=== PATIENT | female | born 1960 | race Caucasian/White ===

== ENCOUNTER 2021-03-03 17:06 | Emergency (ER) | payer OTHER, SELFPAY ==
[2021-03-03 17:19] VITALS: BP 118/68; PULSE 74; RESP 16; TEMP 36.8; O2SAT 99
--- NOTE | 2021-03-03 18:10 | ED.SKABFB ---
HPI - Skin/Abscess/Foreign Bdy General Chief complaint: Skin/Abscess/Foreign Body Stated complaint: rash Source: patient and RN notes reviewed Mode of arrival: ambulatory History of Present Illness HPI narrative: This is a 61-year-old female who presented to urgent care with complaints of a skin rash on her upper and lower extremities. Patient notes that she was working out in her yard when she believes she came into contact with poison irais. While at home she did apply hydrocortisone. She has had some oozing from the skin lesions. The patient denies SOB, CP, palpitation, extremity numbness, lightheadedness, dizziness, constipation, diarrhea, chills, or fever. Related Data Home Medications Medication Instructions Recorded Confirmed venlafaxine 150 mg PO DAILY 03/03/21 03/03/21 Allergies Allergy/AdvReac Type Severity Reaction Status Date / Time No Known Allergies Allergy Verified 03/03/21 17:33 Review of Systems Review of Systems: A 14 organ system Review of Systems was performed and pertinent positives included in the HPI, otherwise remaining ROS is negative. [facility] Family History Family History (Updated 03/03/21 @ 18:11 by LIBBY MendezP-C) Other Family history non-contributory Exam Narrative: GENERAL: This is a well-nourished, well-developed patient, in no apparent distress. HEAD: normocephalic, atraumatic. EYES: PERRL. Sclera clear/white. Vision is grossly intact. EARS: External ears normal, auditory canals clear and without drainage, TMs normal without perforation. Hearing grossly intact. NOSE: External nose normal with no obvious nasal discharge, nares without redness, no rhinorrhea. THROAT: Mucous membranes moist, posterior pharynx clear. NECK: Neck supple, non-tender without lymphadenopathy, masses or thyromegaly. CARDIOVASCULAR: Regular rate and rhythm without murmurs, gallops, or rubs. RESPIRATORY: Clear to auscultation. Breath sounds equal bilaterally. No wheezes, rales, or rhonchi. GASTROINTESTINAL: Abdomen soft, non-tender, nondistended. Bowel sounds are active. No hepato-splenomegaly, or palpable masses. No guarding. SKIN: Lower and upper extremity areas with erythema and puruent drainage to extremity rash NEURO: awake, alert, and oriented to person, place and time. There were no obvious focal neurologic abnormalities. Steady gait EXTREMITIES: Normal range of motion. No edema. No calf tenderness. Negative Homans sign bilaterally. BACK: Nontender without deformity or crepitance. No flank tenderness. Course Course Emergency Course: Patient will be treated with clindamycin for cellulitis and prednisone for poison irais Vital Signs Vital signs: Vital Signs Temperature 98.3 F 03/03/21 17:19 Pulse Rate 74 03/03/21 17:19 Respiratory Rate 16 03/03/21 17:19 Blood Pressure 118/68 03/03/21 17:19 Pulse Oximetry 99 03/03/21 17:19 Temperature 98.3 F 03/03/21 17:19 Pulse Rate 74 03/03/21 17:19 Respiratory Rate 16 03/03/21 17:19 Blood Pressure 118/68 03/03/21 17:19 Pulse Oximetry 99 03/03/21 17:19 Discharge Plan Discharge Clinical Impression: Cellulitis Qualifiers: Site of cellulitis: extremity Site of cellulitis of extremity: lower extremity Laterality: unspecified laterality Qualified Code(s): L03.119 - Cellulitis of unspecified part of limb Contact dermatitis Qualifiers: Contact dermatitis type: irritant Contact dermatitis trigger: other trigger Qualified Code(s): L24.89 - Irritant contact dermatitis due to other agents Patient Disposition: Home, Self-Care Condition: Stable Instructions: Antibiotic Form, Cellulitis (ED), Poison Irais (ED) Additional Instructions: Wash the area with soap and cool water only. Avoid scratching when possible to prevent worsening of the condition and disruption of the skin that could lead to bacterial infection To relieve itching, place a cool washcloth or some ice over the area that itches, rather than scratching Foll
== END 2021-03-03 18:12 | disposition home or self-care (01) ==
PROVIDERS: Emergency Provider Nurse Practitioner
DX: L03.119 Cellulitis of unspecified part of limb (principal); L24.89 Irritant contact dermatitis due to other agents
CPT/HCPCS: 99203; G0463

== ENCOUNTER 2023-06-22 01:33 | Day surgery (SDC) | payer BC, SELFPAY ==
[2023-06-13 12:05] VITALS: BMI 28.8
--- NOTE | 2023-06-20 08:18 | SUR.PREOP ---
Patient called regarding upcoming procedure. Reviewed preop instructions, appointment times, and procedure prep.
[2023-06-22 07:36] VITALS: BP 117/72; PULSE 75; RESP 16; TEMP 36.3; O2SAT 99
[2023-06-22] MEDS: LACTATED RINGERS 1,000 ML 150 ML IV CONT (07:44)
--- NOTE | 2023-06-22 08:11 | WPDANESEPPF ---
Anes - Initial Pre Proc Eval Procedure: Operation Date: 06/22/23 09:00 Proposed Procedures p Screening Colonoscopy - Anjum Maciel DO Date/Time: 06/22/23 08:11 Surgeon: Anjum Maciel DO Pre Op Diagnosis: neoplasm screening Patient Data Age: 63 Gender: F Height: 1.63 m Weight: 74.7 kg Last Vital Signs Temp 97.4 F L 06/22/23 07:36 Pulse 75 06/22/23 07:36 Resp 16 06/22/23 07:36 BP 117/72 06/22/23 07:36 Pulse Ox 99 06/22/23 07:36 O2 Del Method Room Air 06/22/23 07:36 Allergies Allergy/AdvReac Type Severity Reaction Status Date / Time No Known Allergies Allergy Verified 06/22/23 07:35 Home Medications Medication Instructions Recorded Confirmed Type estradiol 0.5 mg tablet 0.5 mg PO DAILY 08/19/22 06/13/23 History trazodone 100 mg tablet 100 mg PO QHS PRN sleep #90 tabs 05/23/23 06/13/23 Rx venlafaxine 75 mg tablet,extended 75 mg PO DAILY #30 tabs 05/23/23 06/13/23 Rx release 24 hr Patient hx anesthesia problems: none Family hx anesthesia problems: none Results Review: All pre-operative results and documents have been reviewed as part of the pre-operative evaluation. [facility] Past Medical History Medical History Vaginal atrophy Surgical History Surgical History H/O section H/O: hysterectomy Family History Family History Mother Diabetes mellitus Sibling Thyroid cancer Sibling No problems noted. Other Family history non-contributory Social History Social History Smoking packs per day: 0.5 Smoking cigarettes per day: 10.0 Smoking status: Former smoker Tobacco type: cigarettes Smoking end date: 03/27/06 Alcohol intake: current Drinks per week: 2 Substance use: current Substance use type: marijuana Other substance usage details: gummies Lack of Transportation: No Lack of Food: Never True Current Housing: I Have Housing Concerned About Future Housing: No Difficulty Paying Gas/Electric Bills: No Difficulty Paying for Meds: No Currently Unemployed: No Education: Bachelor's Degree Difficulty w/ Childcare or Family Care: No Living arrangements: with family Occupation/Education: retired Additional occupation/education comments: retired Gender identity (if verbalized by the patient): Female Spiritual care concerns: No Anes - Eval Final PreProcedure Day of Procedure 06/22/23 08:11 Patient weight: normal Heart: regular rate and rhythm Lungs: clear to auscultation Airway: Mallampati scale class II Neurological: alert and oriented Last oral intake: >/= 8 hours ASA classification: II Emergent: no Anesthetic plan: proceed Anesthesia type and monitoring: general GIVS and standard monitoring Results Review: All pre-operative results and documents have been reviewed as part of the pre-operative evaluation. Informed Consent: The patient's anesthetic plan and its attendant risks and benefits were discussed with the patient/family/POA. Questions were solicited and answers provided to the satisfaction of the patient/family/POA.
--- NOTE | 2023-06-22 08:38 | PM.IMHP ---
H&P: HPI History of Present Illness Date/Time: 06/22/23 08:38 Chief Complaint: screening for colorectal cancer Narrative: this is a 63-year-old woman who presents for colonoscopy. Her last colonoscopy was 10 years ago and was normal. She denies any hematochezia or melena. She denies any family history of colon cancer. Review of Systems Review of Systems: All systems reviewed & are unremarkable except as noted in HPI and below Constitutional: Constitutional: Denies chills, Denies fever(s), Denies headache(s) and Denies weight loss Eyes: Eyes: Denies change in vision ENT: Denies dizziness, Denies headache(s), Denies neck mass and Denies throat swelling Cardiovascular: Cardiovascular: Denies chest pain, Denies lightheadedness and Denies dyspnea Respiratory: Respiratory: Denies cough, Denies dyspnea and Denies wheezing Gastrointestinal: Gastrointestinal: Denies abdominal pain, Denies change in bowel habits, Denies nausea and Denies vomiting Genitourinary: Genitourinary: Denies hematuria and Denies dysuria Musculoskeletal: Musculoskeletal: Reports as per HPI Integumentary/Breasts: Skin/Breast: Reports as per HPI Neurologic: Denies dizziness and Denies headache(s) Allergic/Immunologic: Allergic/Immunologic: Denies throat swelling and Denies wheezing [facility] Past Medical History Medical History Vaginal atrophy Surgical History Surgical History H/O section H/O: hysterectomy Family History Family History Mother Diabetes mellitus Sibling Thyroid cancer Sibling No problems noted. Other Family history non-contributory Social History Social History Smoking packs per day: 0.5 Smoking cigarettes per day: 10.0 Smoking status: Former smoker Tobacco type: cigarettes Smoking end date: 03/27/06 Alcohol intake: current Drinks per week: 2 Substance use: current Substance use type: marijuana Other substance usage details: gummies Lack of Transportation: No Lack of Food: Never True Current Housing: I Have Housing Concerned About Future Housing: No Difficulty Paying Gas/Electric Bills: No Difficulty Paying for Meds: No Currently Unemployed: No Education: Bachelor's Degree Difficulty w/ Childcare or Family Care: No Living arrangements: with family Occupation/Education: retired Additional occupation/education comments: retired Gender identity (if verbalized by the patient): Female Spiritual care concerns: No Meds Home Medications and Allergies Home Medications Medication Instructions Recorded Confirmed Type estradiol 0.5 mg tablet 0.5 mg PO DAILY 08/19/22 06/13/23 History trazodone 100 mg tablet 100 mg PO QHS PRN sleep #90 tabs 05/23/23 06/13/23 Rx venlafaxine 75 mg tablet,extended 75 mg PO DAILY #30 tabs 05/23/23 06/13/23 Rx release 24 hr Allergies Allergy/AdvReac Type Severity Reaction Status Date / Time No Known Allergies Allergy Verified 06/22/23 07:35 Vital Signs Vital Signs - 24 hr 06/22/23 07:36 Temperature 36.3 C L Pulse Rate 75 Respiratory Rate 16 Blood Pressure 117/72 Pulse Oximetry 99 Oxygen Delivery Room Air Exam Const: General: no acute distress and alert Orientation/consciousness: patient oriented x3 HENMT: Head: normocephalic and atraumatic Ears: hearing grossly normal bilaterally Face/Nose/Sinus: Normal nares present Mouth: Yes Normal oral and palatal mucosa present Eyes: Periorbital: periorbital findings normal Sclera: sclerae normal EOM: EOMs intact bilaterally Neck: Neck: normal visual inspection, no lymphadenopathy and trachea midline Chest: Chest palpation & inspection: normal inspection of the chest Resp: Effort & Inspection: normal respiratory effort Auscultati
[2023-06-22 09:25] VITALS: BP 113/79; PULSE 62; RESP 16; O2SAT 100
[2023-06-22 09:35] VITALS: BP 114/68; PULSE 54; RESP 15; O2SAT 100
[2023-06-22 09:45] VITALS: BP 125/89; PULSE 60; RESP 23; O2SAT 99
== END 2023-06-22 09:51 | disposition home or self-care (01) ==
PROVIDERS: PCP Nurse Practitioner; Visit Provider Surgery
PROC: 0DJD8ZZ Inspection of Lower Intestinal Tract, Via Natural or Artificial Opening Endoscopic (ICD-10-PCS; CPT 45378; principal; 2023-06-22 09:00)
DX: Z12.11 Encounter for screening for malignant neoplasm of colon (principal); F12.90 Cannabis use, unspecified, uncomplicated; Z98.890 Other specified postprocedural states; Z87.891 Personal history of nicotine dependence; Z80.8 Family history of malignant neoplasm of other organs or systems
CPT/HCPCS: 45378; J2704; J7120

== ENCOUNTER 2024-12-09 10:45 | Outpatient (CLI) | payer BC, SELFPAY ==
--- NOTE | ~2024-12-09 | XR_ITS ---
EXAMINATION: XR lumbar spine 2-3V DATE: 12/09/2024 10:57 INDICATION: Low back pain TECHNIQUE: 3 images of the lumbar spine were obtained COMPARISON: None. FINDINGS: There is bowel gas and stool projecting over the pelvis which limits evaluation. There are a few less than 1.0 cm calcifications projecting over the pelvis which may represent phleboliths, however, a distal ureteral stone or bladder stone or possible. No compression fracture in the lumbar spine. Grade 1 anterolisthesis of L4 on L5. Moderate degenerative change in the mid and lower lumbar spine. Grade 1 retrolisthesis of L1 on L2. Moderate joint space narrowing at the L1-L2 level. IMPRESSION: 1. No compression fracture in the lumbar spine. 2. Grade 1 retrolisthesis of L1 on L2 and L4 on L5. 3. Moderate degenerative change in the mid and lower lumbar facet joints. If symptoms persist or worsen, consider an MRI of the lumbar spine for further assessment. Reviewed, dictated and finalized at location Q.
--- OUTSIDE RECORDS SUMMARY | 2024-12-09 12:22 | XMS_ITS | Encounter Summary ---
Author Organization [facility] Facility Care Team Providers Care Pickle Processor Name Role Phone Smita Gomez MD Primary Care Provider [phone] Renetta Valles MD Unavailable [phone] Adam Luu MD Primary Care Provider [phone] Encounter Details Date Type Department Care Team (Latest Contact Info) Description 06/01/2018 Orders Only [facility]IN[facility] Provider, MD Pavel [address] [place] [address] Social History Tobacco Use Types Packs/Day Years Used Date Smoking Tobacco: Former Smokeless Tobacco: Never Alcohol Use Standard Drinks/Week Comments Yes 1 (1 standard drink = 0.6 oz pur e alcohol) Comments No Sex and Gender Information Value Date Recorded Sex Assigned at Not on file 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 us Historical Provider Final Res ult documented in this encounter Visit Diagnoses Not on filedocumented in this encounter Care Teams Pickle Processor Relationship Specialty Start Date End Date Smita Gomez MD PCP - General Family Medicine 09/21/17 09/29/22 Adam Luu MD [address] [address] PCP - General Internal Medicine 09/30/22 Renetta Valles MD [address] [facility] [address] [place], [place] [id number] Referring Physician Gynecology 07/18/18 documented as of this encounter
--- OUTSIDE RECORDS SUMMARY | 2024-12-09 12:22 | XMS_ITS | Encounter Summary ---
Author Organization [facility] Facility Care Team Providers Care College Physics Instructor Name Role Phone Sonal Moon MD Primary Care Provider Smita Gomez MD Primary Care Provider [phone] Renetta Valles MD Unavailable [phone] Adam Luu MD Primary Care Provider [phone] Encounter Details Date Type Department Care Team (Latest Contact Info) Description 06/08/2016 Orders Only [facility] CLINCONV Provider, MD Pavel [address] [place] [address] Social History Tobacco Use Types Packs/Day Years Used Date Smoking Tobacco: Never Assessed Comments Unknown Sex and Gender Information Value Date Recorded Sex Assigned at Not on file 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 us Historical Provider Final Res ult documented in this encounter Visit Diagnoses Not on filedocumented in this encounter Care Teams College Physics Instructor Relationship Specialty Start Date End Date Sonal Moon MD [address] [place] [address] PCP - General 07/21/16 09/20/17 Smita Gomez MD [address] [place] [address] PCP - General Family Medicine 09/21/17 09/29/22 Adam Luu MD [address] [address] PCP - General Internal Medicine 09/30/22 Renetta Valles MD [address] [facility] [address] [place] [address] Referring Physician Gynecology 07/18/18 documented as of this encounter
--- OUTSIDE RECORDS SUMMARY | 2024-12-09 12:22 | XMS_ITS | Clinical Summary ---
Author Organization [facility] Address [address] [place] [address] Care Team Providers Care Workforce Investment Act Career Manager Name Role Phone Gary Miller MD Primary Care Provider [phone] Source Comments [facility],non-owned Affiliates and Associated Physician Practices is amultiple site organization consisting of ambulatory clinics and hospital sitesin [place], [place], [place] and [place]. This disclosure is being madepursuant to the Care Everywhere program and may not contain all information available regarding this patient. 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 Gender Identity Not on file Sexual Orientation Not on file Plan of Treatment Health Maintenance Due Date Last Done Comments COLOGUARD (AGES 45-75) - COL ON CA SCREENING 1961 COLON MONITORING 1961 COLONOSCOPY - COLON CA SCREENING 1961 CT COLONOGRAPHY - COLON CA SCREENING 1961 Colorectal Cancer Screening 1961 FIT - COLON CA SCREENING 1961 FLEX SIG - COLON CA SCREENING 1961 LIPID TESTING 1961 MAMMOGRAM 1961 HIV SCREENING 02/08/1976 HEPATITIS C SCREENING 02/03/1979 DTAP/TDAP/TD VACCINES (1 - Tdap) 02/08/1980 PNEUMOCOCCAL VACCINE 50+ (1 of 1 - PCV) 2011 ZOSTER VACCINE (1 of 2) 2011 DEPRESSION SCREENING 03/27/2024 COVID-19 VACCINE (1 - 2023-2 5 season) 2024 INFLUENZA VACCINE (#1) 2024 Respiratory Syncytial Virus (RSV) Vaccine Pt: or over 60 yrs (1 - 1-dose 75+ series) 02/08/2036 HEPATITIS B VACCINE Aged Out No longe r eligible based on patient's age to complete this topic HIB VACCINE Aged Out No longer eligi ble based on patient's age to complete this topic HPV VACCINE Aged Out No longer eligi ble based on patient's age to complete this topic MENINGOCOCCAL (Group B) VACC INE SHARED DECISION-MAKING Aged Out No longer eligibl e based on patient's age to complete this topic MENINGOCOCCAL GROUPS A/C/Y/W VACCINE Aged Out No longer eligible b ased on patient's age to complete this topic Insurance COUNTS INCLUDE 234 BEDS AT [facility] Care Teams Workforce Investment Act Career Manager Relationship Specialty Start Date End Date Gary Miller MD [address] [place] [address] PCP - General 03/11/20
--- OUTSIDE RECORDS SUMMARY | 2024-12-09 12:22 | XMS_ITS | Encounter Summary ---
Author Organization [facility] Facility Care Team Providers Care Wire Bound Box Machine Helper Name Role Phone Sonal Moon MD Primary Care Provider Smita Gomez MD Primary Care Provider [phone] Renetta Valles MD Unavailable [phone] Adam Luu MD Primary Care Provider [phone] Encounter Details Date Type Department Care Team (Latest Contact Info) Description 12/31/2015 Orders Only [facility] CLINCONV Provider, MD Pavel [address] [place] [address] Social History Tobacco Use Types Packs/Day Years Used Date Smoking Tobacco: Never Assessed Comments Unknown Sex and Gender Information Value Date Recorded Sex Assigned at Not on file 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 us Historical Provider Final Res ult documented in this encounter Visit Diagnoses Not on filedocumented in this encounter Care Teams Wire Bound Box Machine Helper Relationship Specialty Start Date End Date Sonal Moon MD [address] [place] [address] PCP - General 07/21/16 09/20/17 Smita Gomez MD [address] [place] [address] PCP - General Family Medicine 09/21/17 09/29/22 Adam Luu MD [address] [address] PCP - General Internal Medicine 09/30/22 Renetta Valles MD [address] [facility] [address] [place] [address] Referring Physician Gynecology 07/18/18 documented as of this encounter
--- OUTSIDE RECORDS SUMMARY | 2024-12-09 12:22 | XMS_ITS | Encounter Summary ---
Author Organization [facility] Facility Care Team Providers Care Telecom Analyst Name Role Phone Sonal Moon MD Primary Care Provider Smita Gomez MD Primary Care Provider [phone] Renetta Valles MD Unavailable [phone] Adam Luu MD Primary Care Provider [phone] Encounter Details Date Type Department Care Team (Latest Contact Info) Description 06/08/2017 Orders Only [facility] CLINCONV Provider, MD Pavel [address] [place] [address] Social History Tobacco Use Types Packs/Day Years Used Date Smoking Tobacco: Never Assessed Comments Unknown Sex and Gender Information Value Date Recorded Sex Assigned at Not on file 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 us Historical Provider Final Res ult documented in this encounter Visit Diagnoses Not on filedocumented in this encounter Care Teams Telecom Analyst Relationship Specialty Start Date End Date Sonal Moon MD [address] [place] [address] PCP - General 07/21/16 09/20/17 Smita Gomez MD [address] [place] [address] PCP - General Family Medicine 09/21/17 09/29/22 Adam Luu MD [address] [address] PCP - General Internal Medicine 09/30/22 Renetta Valles MD [address] [facility] [address] [place] [address] Referring Physician Gynecology 07/18/18 documented as of this encounter
--- OUTSIDE RECORDS SUMMARY | 2024-12-09 12:22 | XMS_ITS | Clinical Summary ---
Author Organization [facility] Address [address] [place] [address] Care Team Providers Care Stuffer Name Role Phone Renetta Valles MD Unavailable [phone] Adam Luu MD Primary Care Provider [phone] Allergies Active Allergy Reactions Criticality Noted Date Comments No Known Allergies Other (See comments) Low Reaction: Medications Linzess 290 mcg capsule Take 1 capsule (290 mcg total) by mouth daily 90 capsule 1 10/08/2020 Active traZODone (DESYREL) 50 mg tabletIndication s:Primary insomnia Take 1 tablet (50 mg total) by mouth nightly at bedtime. 120 tablet 03/04/2022 Active spironolactone (ALDACTONE) 100 mg tablet Take 1 tablet (100 mg total) by mouth 2 (two) times a day 07/13/2022 Active ursodioL (EMMA) 250 mg tablet Take 1 tablet (250 mg total) by mouth every morning 07/12/2022 Active progesterone (PROMETRIUM) 100 mg capsule Take 1 capsule (100 mg total) by mouth daily Active estradioL (Imvexxy Maintenance Pack) 4 mcg insert vaginal insertIndication s:Atrophic vaginitis Insert 4 mcg into the vagina 2 (two) times a week 8 each 3 09/05/2022 Active venlafaxine XR (EFFEXOR-XR) 150 mg 24 hr capsuleIndicatio ns:Ovarian cancer, right (HCC) TAKE 1 CAPSULE(150 MG) BY MOUTH DAILY 30 capsule 1 09/06/2022 Active Active Problems Problem Noted Date Diagnosed Date Dyspareunia in female 09/05/2022 Ovarian cancer, right 09/21/2017 Cancer Staging:Pathologic stage from 03/14/2016:FIGO Stage IA(pT1a, pN0, cM0) - Signed by Lo Scott MD on 09/30/2017 Atrophic vaginitis 11/03/2016 Hyperlipidemia 07/01/2016 Assessment & Plan (10/11/2019 8:47 AM CDT): Controlling with diet/exercise Assessment & Plan (10/08/2018 4:32 PM CDT): Stable, no changes. Continue current regimen with Diet/ exercise. Last lipid panel checked May 2018, good. 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 Continue current regimen with trazodone Neuritis 12/30/2015 Resolved Problems Problem Noted Date Diagnosed Date Resolved Date Hypothyroidism 06/18/2015 10/08/2018 Immunizations Immunization Administration Dates Next Due Influenza, Quadrivalent, Spl it, Intramuscular 12/28/2016 Influenza, Quadrivalent, Spl it, Preservative Free, Intramuscular 11/29/2018,11/27/2018,12/12/2017,12/28 Surgical History Surgery Date Site/Laterality Comments SECTION 03/27/1988 - 03/26/1989 HYSTEROSCOPY W/ ENDOMETRIAL ABLATION 03/27/1991 - 03/26/1992 2009 TUBAL LIGATION 03/27/1992 - 03/26/1993 INCISIONAL BREAST BIOPSY 03/27/1989 - 03/26/1990 LAPAROSCOPIC HYSTERECTOMY 02/25/2016 - 03/26/2016 BSO/RIGHT pelvic & para aortic LND HYSTERECTOMY 03/14/16 Medical History Medical History Date Comments Pain in hip BRCA negative 2016 Low back pain Genetic testing of female 08/2016 Invita e 42 gene panel NEGATIVE Ovarian cancer (HCC) 2016 Family History Medical History Relation Name Comments Cancer Brother Rell Thyroid cancer Brother Rell Rheum arthritis Father Diabetes Mother Luz Maria Cancer Sister 1 Sara Cervical cancer Sister 1 Sara Cancer Sister 2 Jaki Obesity Sister 3 Mariluz Relation Name Status Comments Brother Rell Father Alive Mother Luz Maria Alive Sister 1 Sara Alive Sister 2 Jaki Sister 3 Mariluz Social History Tobacco Use Types Packs/Day Years Used Date Smoking Tobacco: Former Smokeless Tobacco: Never Tobacco Cessation:Counseling Given: Not Answered Alcohol Use Standard Drinks/Week Comments Yes 1 (1 standard drink = 0.6 oz pur e alcohol) AUDIT-C Answer Date Recorded Q1: How often do you have a drink containing alc ohol? 2-3 times a week 09/05/2022 Q2: How many drinks containi ng alcohol do you have on a typical day when you are drinking? 3 or 4 09/05/2022 Q3: How often do you have si x or more drinks on one occasion? 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 file Not on file Not on file Obstetrics History Para Term AB IAB SAB Ectopic Multiple Livin g Live Births 1 1 1 0 0 1 1 Date Outcome GA Total Labor Labor/2nd/3rd Weight Sex Type Anes PTL Lachelle A1 A5 Name Clin Term CS-Unsp ec Last Filed Vital Signs Vital Sign Reading Time Taken Comments Blood Pressure 110/76 09/05/2022 9:12 AM CDT Pulse 54 04/15/2021 4:04 PM GPS FIELD DATA COLLECTOR Temperature 36.9 C (98.4 F) 04/15/2021 4:04 PM GPS FIELD DATA COLLECTOR Respiratory Rate 16 04/15/2021 4:04 PM GPS FIELD DATA COLLECTOR Oxygen Saturation 99% 04/15/2021 4:04 PM GPS FIELD DATA COLLECTOR Inhaled Oxygen Concentration - - Weight 70.3 kg (155 lb) 09/05/2022 9:12 AM CDT Height 162.6 cm (5' 4) 09/05/2022 9:12 AM CDT Body Mass Index 26.61 09/05/2022 9:12 AM CDT Plan of Treatment Health Maintenance Due Date Last Done Comments Hepatitis C Screening 1960 DTaP/Tdap/Td Vaccine (1 - Tdap) 02/08/1972 Hepatitis B Screening 1979 Zoster Vaccine (1 of 2) 2011 Depression Screening 10/09/2019 10/08/2018, 10/09/19 19 Breast Cancer Screening-Mammogram 05/07/2021 05/07/2020, 03/08/2018, 02/24/2018, Additional history exists Colon Cancer Screening-Colonoscopy 03/27/2023 03/27/2013 Regular Well Visit/Exam 18-64 09/06/2023 09/05/2022, 10/10/2019, 10/08/2018 Influenza Vaccine (#1) 2024 9, 11/27/2018, 12/12/2017, Additional history exists Colon Cancer Screening-CT Colonography Discontinued 03/27/2013 Colon Cancer Screening-DNA Stool Discontinued 03/27/2013 Colon Cancer Screening-FIT Discontinued 03/27/2013 Colon Cancer Screening-Sigmoidoscopy Discontinued 03/27/2013 Pneumococcal vaccine <65 Aged Out No longer eligible based on patient's age to complete this topic Procedures Procedure Name Priority Date/Time Associated Diagnosis Comments SCREENING MAMMOGRAM 2D BILATERAL 05/07/2020 7:19 AM GPS FIELD DATA COLLECTOR HM COLONOSCOPY Routine 03/27/2013 from Last 3 Months or Most Recently Relevant to Health Maintenance Results * Screening Mammogram 2D Bilateral (05/07/2020 7:19 AM GPS FIELD DATA COLLECTOR) Anatomical Region Laterality Modality Breast Bilateral Mammography 05/07/2020 7:21 AM GPS FIELD DATA COLLECTOR Narrative 05/07/2020 8:14 AM GPS FIELD DATA COLLECTOR Patient Name: SANJAY CEDENO Ordering Dr: Smita Gomez MD D.O.B: 1960 Exam Date: 05/07/20718 Age: 60 Sex: Female MR#: [id number] Loc: RADIOLOGY REPORT Order #[id number] [facility] Bilateral Screening Signed - MG BILATERAL DIGITAL SCREENING MAMMOGRAM WITH MEDIOLATERAL OBLIQUE CRANIOCAUDAL: 05/07/2020 The study was acquired using full field digital technology and interpreted from soft copy. CLINICAL: Routine mammogram. Denies any problems today. No personal history of breast cancer. No family history of breast cancer. COMPARISONS: Comparison is made to exams dated: 03/08/2018 mammogram and 07/20/2016 mammogram - [facility]. BREAST TISSUE: The tissue of both breasts is heterogeneously dense, which may obscure small masses. FINDINGS: No significant masses, calcifications, or other findings are seen in either breast. There has been no significant interval change. IMPRESSION: BI-RAD 1 NEGATIVE There is no mammographic evidence of malignancy. A 1 year screening mammogram is recommended. The patient has been or will be contacted. We recommend annual screening mammography for women at average risk of breast cancer beginning at age 40, based on guidelines of the [place] [employer] (ACR Practice Parameter for the Performance of Screening and Diagnostic Mammography) and [place] [employer]. For women with an elevated risk of breast cancer, please refer to the ACR Practice Parameter for specific screening recommendations. The patient will be entered into a reminder system with a target due date of 1 year for her next screening exam. Electronically signed by: Rell Blancas M.D., md/ruba:05/07/2020 08:14:44 Corporate Legal Assistant: Melvi Ordonez, [facility] letter sent: Normal Exam Reading location: BI-RADS: 1 Negative REPORT ELECTRONICALLY SIGNED IN OTHER VENDOR SYSTEM Resulting Agency Comment O Procedure Note Rell Blancas MD - 05/07/2020 Patient Name: KEVINSANJAYCADEN Medeiros Dr: Smita Gomez MD D.O.B: 1960 Exam Date: 05/07/20718 Age: 60 Sex: Female MR#: [id number] Loc: RADIOLOGY REPORT Order #[id number] [facility] [place] Bilateral Screening Signed - MG BILATERAL DIGITAL SCREENING MAMMOGRAM WITH MEDIOLATERAL OBLIQUECRANIOCAUDAL: 05/07/2020 The study was acquired using full field digital technology andinterpreted from soft copy. CLINICAL: Routine mammogram. Denies any problems today. No personalhistory of breast cancer. No family history of breast cancer. COMPARISONS: Comparison is made to exams dated: 03/08/2018 mammogram and 07/20/2016 mammogram - [facility]. BREAST TISSUE: The tissue of both breasts is heterogeneously dense, whichmay obscure small masses. FINDINGS: No significant masses, calcifications, or other findings areseen in either breast. There has been no significant interval change. IMPRESSION: BI-RAD 1 NEGATIVE There is no mammographic evidence of malignancy. A 1 year screeningmammogram is recommended. The patient has been or will be contacted. We recommend annual screening mammography for women at average risk ofbreast cancer beginning at age 40, based on guidelines of the [place] [employer] (ACR Practice Parameter for the Performance of Screening and Diagnostic Mammography) and [place] [employer]. For women with an elevated risk of breast cancer, pleaserefer to the ACR Practice Parameter for specific screening recommendations. The patient will be entered into a reminder system with a target due dateof 1 year for her next screening exam. Electronically signed by: Rell Blancas M.D., md/penrad:05/07/2020 08:14:44 Corporate Legal Assistant: Melvi Ordonez, [facility] letter sent: Normal Exam Reading location: BI-RADS: 1 Negative REPORT ELECTRONICALLY SIGNED IN OTHER VENDOR SYSTEM Smita Gomez MD IMG MAMMO PROCEDURES Angie l Result * COLONOSCOPY (03/27/2013) Colonoscopy Normal Historical Provider HEALTH MAINTENANCE Final Result from Last 3 Months or Most Recently Relevant to Health Maintenance Insurance [facility] [employer] [facility] PPO Care Teams Stuffer Relationship Specialty Start Date End Date Adam Luu MD [address] [address] PCP - General Internal Medicine 09/30/22 Renetta Valles MD [address] [id number] Referring Physician Gynecology 07/18/18
--- OUTSIDE RECORDS SUMMARY | 2024-12-09 12:22 | XMS_ITS | Encounter Summary ---
Author Organization [facility] Address [address] [place] [address] Care Team Providers Care Transmission Line Engineer Name Role Phone Gary Miller MD Primary Care Provider [phone] Encounter Details Date Type Department Care Team (Late st Contact Info) Description 03/12/2020 Lab Requisition [facility] [address] [place] [id number] Jose Felix MD [address] [place] [address] Social History Tobacco Use Types Packs/Day Years Used Date Smoking Tobacco: Never Assessed Comments Unknown Sex and Gender Information Value Date Recorded Sex Assigned at Not on file Legal Sex Female 2:55 PM FRUIT BUYING GRADER Gender Identity Not on file Sexual Orientation Not on file documented as of this encounter Plan of Treatment Not on file documented as of this encounter Procedures Procedure Name Priority Date/Time Associated Diagnosis Comments DERMATOPATHOLOGY Routine 03/11/2020 12:0 0 AM FRUIT BUYING GRADER documented in this encounter Results * DERMATOPATHOLOGY (03/11/2020 12:00 AM FRUIT BUYING GRADER) Case Report Dermatopathology Report Case: [id number] Authorizing Provider: Jose Felix MD Collected: 03/11/2020 12:00 AM Ordering Location: [facility] Received: 03/12/2020 06:25 AM Pathologist: Becki Kilpatrick MD Specimen: Skin, right ant scalp 0 4:45 PM FRUIT BUYING GRADER DERMATOPATHOLOGY LABORATORY Final Diagnosis Specimen A. SKIN, right ant scalp: BASAL CELL CARCINOMA, NODULAR TYPE (C44.41) 0 4:45 PM FRUIT BUYING GRADER DERMATOPATHOLOGY LABORATORY at [address] FRUIT BUYING GRADER Clinical History Pardeep derm vs AK vs BCC. Path # [id number]. 0 4:45 PM FRUIT BUYING GRADER DERMATOPATHOLOGY LABORATORY Gross Description Specimen A: Received is one formalin filled container labeled with the patient's name and designated right ant scalp. The specimen consists of a shave biopsy measuring [id number]. Jar 0. 0 4:45 PM FRUIT BUYING GRADER DERMATOPATHOLOGY LABORATORY Microscopic Description Specimen A. SKIN, right ant scalp: Within the dermis there are aggregates of basaloid cells with a high nuclear to cytoplasmic ratio and peripheral palisading. 0 4:45 PM FRUIT BUYING GRADER DERMATOPATHOLOGY LABORATORY Disclaimer An external and internal positive and negative controls are appropriate for the histochemical, immunohistochemical and immunofluorescence stain(s) in this case (if any), except where stated explicitly. The performance characteristics of the stain(s) cited in this report were developed and its performance characteristic determined by the Dermatopathology Laboratory at [facility], directed by Dr. Pranav Rudd. These tests need not be, and therefore are not, approved by the [place] Food and Drug Administration. The tests are used for clinical purposes. Billing Codes Specimen Charges Stain Charges 91319 1 0 4:45 PM FRUIT BUYING GRADER DERMATOPATHOLOGY LABORATORY Embedded Images 0 4:45 PM FRUIT BUYING GRADER DERMATOPATHOLOGY LABORATORY Pathology/Cytolog y TISSUE SPECIMEN FROM SKIN / Unknown 03/11/2020 03/12/2020 6:25 AM FRUIT BUYING GRADER us Jose Felix MD LAB - PATHOLOGY/CYTOLOGY ORDER PRADIP Final Result DERMATOPATHOLOGY LABORATORY [facility] - Department of Dermatology [facility] Medicine [address] [place] [address], [address] [phone] documented in this encounter Visit Diagnoses Not on filedocumented in this encounter Care Teams Transmission Line Engineer Relationship Specialty Start Date End Date Gary Miller MD [address] [facility] [address] [place] [address] PCP - General 03/11/20 documented as of this encounter
--- OUTSIDE RECORDS SUMMARY | 2024-12-09 12:23 | XMS_ITS | Patient Health Record ---
Author Organization [facility] Address [address] [facility] [address] [place], [place] [id number] Care Team Providers Care Sap Plant Maintenance Consultant Name Role Phone SOCO PINEDA Unavailable [phone] Answer, Declined Unavailable Unavailable Allergies No Known Allergies Reason For Referral No Information Medications Medication SIG (Take, Route, Frequency, Duration) Notes Start Date End Date Status HYDROcodone-Acetaminophen 5-325 MG 1 tablet as needed Orally every 6 hrs 04/29/2024 Active traZODone HCl 100 MG Oral; Duration: 90 Days Active Vital Signs Weight-kg 72.58 kg 06/03/2024 Weight 160 lbs 06/03/2024 Encounters Encounter Location Date Provider Diagnosis [facility] [place] [address] [address] [place] [phone] 04/29/2024 SOCO SNDARLINK Sprain of other ligament of left ankle, initial encounter S93.492A ; Peroneal tendinitis, left leg M76.72 and Left foot pain M79.672 [facility] [place] [address] [place] [phone] 05/13/2024 SOCO SNOOK Peroneal tendinitis, left leg M76.72 ; Sprain of other ligament of left ankle, subsequent encounter S93.492D and Left foot pain M79.672 [facility] [place] [address] [address] [place] [phone] 06/03/2024 SOCO SNOOK Peroneal tendinitis, left leg M76.72 ; Sprain of other ligament of left ankle, subsequent encounter S93.492D and Left foot pain M79.672 Assessments Encounter Date Diagnosis (ICD Code) Assessment Notes Treatment Notes Treatment Clinical Notes Section Notes 04/29/2024 Peroneal tendinitis, left leg (ICD-10 - M76.72) Peroneal Tendonitis: I discussed anti-inflammatory treatment options and various means of immobilization with the patient. I educated the patient on icing and stretching, supportive shoegear, and the use of orthotic devices and bracing. 04/29/2024 Sprain of other ligament of left ankle, initial encounter (ICD-10 - S93.492A) Ankle Sprain: Discussed the treatment course for ankle sprain. Explained that ankle injuries may take a total of 6-12 weeks for recovery based on the severity of the sprain. Stressed the importance of rest, activity modification, and bracing. Unna Boot: An unna boot was applied to the affected foot. The patient was instructed to keep it dry. 05/13/2024 Peroneal tendinitis, left leg (ICD-10 - M76.72) Peroneal Tendonitis: I discussed anti-inflammatory treatment options and various means of immobilization with the patient. I educated the patient on icing and stretching, supportive shoegear, and the use of orthotic devices and bracing. 05/13/2024 Sprain of other ligament of left ankle, subsequent encounter (ICD-10 - S93.492D) Unna Boot Removal: Following proper technique, the unna boot was removed without incident. TUBIGRIP: Tubigrip compression applied for support, compression and edema control Continue CAM: Advised the patient to continue to wear the CAM boot as directed and to limit activity. 06/03/2024 Peroneal tendinitis, left leg (ICD-10 - M76.72) Peroneal Tendonitis: I discussed anti-inflammatory treatment options and various means of immobilization with the patient. I educated the patient on icing and stretching, supportive shoegear, and the use of orthotic devices and bracing. 06/03/2024 Sprain of other ligament of left ankle, subsequent encounter (ICD-10 - S93.492D) Discontinue Cam Boot: Patient may discontinue the CAM boot. I advised the patient to return to regular shoes and gradual return to activities as tolerated. Recommend OTC LULU Ankle brace (neoprene) 06/03/2024 Left foot pain (ICD-10 - M79.672) 05/13/2024 Left foot pain (ICD-10 - M79.672) 04/29/2024 Left foot pain (ICD-10 - M79.672) 05/13/2024 Other Plan Of Treatment No Information Insurance Providers Payer Name Payer Address Payer Phone Subscriber Number Group Number Insured Name Patient Relationship to Insured Coverage Start Date Coverage End Date [facility] ([facility] ATTN CLAIMS [address] [place] [address] [id number] SANJAY CEDENO Self - patient is the insured
== END 2024-12-09 10:46 | disposition home or self-care (01) ==
LOC: ANHIMG 10:47
PROVIDERS: PCP Nurse Practitioner; Visit Provider Internal Medicine
DX: M54.50 Low back pain, unspecified (principal); G89.29 Other chronic pain
CPT/HCPCS: 72100